=== PATIENT | female | born 1955 | race Caucasian/White ===

== ENCOUNTER → 2017-01-25 15:39 | Outpatient (CLI) | payer OTHER ==
[2016-03-21 10:13] VITALS: BMI 35.0
[~2017-01-25 15:39] MED LIST: CATAPRES0.1 MG PO; COMBIVENT RESPIM4 GM INH; CYCLOBENZAPRINE10 MG PO; LEXAPRO10 MG PO; PERCOCET 5-3251 TAB PO; XANAX0.5 MG PO; ZESTRIL20 MG PO; ZOFRAN4 MG PO
== END | disposition home or self-care (01) ==
LOC: D.RAD 10:15
DX: C78.01 Secondary malignant neoplasm of right lung (principal)

== ENCOUNTER → 2018-12-09 18:35 | Outpatient (CLI) | payer OTHER ==
[2016-03-21 10:13] VITALS: BMI 35.0
== END | disposition home or self-care (01) ==
LOC: D.MAMMO 16:15
DX: Z12.31 Encounter for screening mammogram for malignant neoplasm of breast (principal)